=== PATIENT | female | born 1960 | race Caucasian/White ===

== ENCOUNTER 2024-05-28 14:33 | Observation (INO) | payer MEDICARE, SELFPAY ==
[2024-05-28] MEDS ORDERED: Tranexamic Acid 1,000 MG/10 ML VIAL ONE (15:08)
[2024-05-28] MEDS ORDERED: AFRIN NASAL MIST 15 ML BOT ONE (15:36)
[2024-05-28] MEDS ORDERED: EPINEPHrine 1 MG/ML VIAL ONE (15:36)
[2024-05-28] MEDS ORDERED: Lidocaine 1% w/Epinephrine 1:200K 30 ML VIAL ONE (15:37)
[2024-05-28 15:44] LABS: INR-International Normal Ratio 0.9; Prothrombin Time 10.1 sec (9.5-12.1)
[2024-05-28 15:46] LABS: Anion Gap 11 mmol/L (10-20); BUN (Urea Nitrogen) 13 mg/dL (9.8-20.1); Calc. Creatinine Clearance 0 mL/min (70-130); Calcium 9.3 mg/dL (7.8-10.44); Carbon Dioxide 24 mmol/L (23-31); Chloride 106 mmol/L (98-107); Estimated GFR 85; Glucose 245 mg/dL (80-115); Potassium 3.9 mmol/L (3.5-5.1); Sodium 137 mmol/L (136-145)
[2024-05-28 15:52] LABS: #Basophils 0.04 10x3/uL (0.0-0.2); #Eosinophils 0.19 10x3/uL (0.0-0.5); #Monocytes 0.67 10x3/uL (0.0-1.1); #Neutrophils 6.42 10x3/uL (1.5-8.4); %Basophils 0.4 % (0.0-2.0); %Eosinophils 2.1 % (0.0-6.0); %Lymphocytes 19.5 % (18.0-47.0); %Monocytes 7.3 % (0.0-10.0); %Neutrophils 69.5 % (40.0-75.0); Hematocrit 28.9 % (34.9-44.5); Hemoglobin 9.3 g/dL (12.0-15.5); Mean Corpuscular HGB CONC 32.2 g/dL (32.0-36.0); Mean Corpuscular Hemoglobin 29.2 pg (27.0-33.0); Mean Corpuscular Volume 90.9 fL (81.6-98.3); Mean Platelet Volume 9.8 fL (7.4-10.4); Platelet Count 256 10x3/uL (150-450); RBC Distribution Width 14.5 % (11.5-14.5); Red Blood Cell (RBC) Count 3.18 10x6/uL (3.90-5.03); White Blood Cell (WBC) Count 9.2 10x3/uL (3.5-10.5)
[2024-05-28] MEDS ORDERED: Ondansetron ODT 4 MG TAB PO PRN (16:11)
[2024-05-28] MEDS ORDERED: Acetaminophen 325 MG TAB PO PRN (16:11)
[2024-05-28] MEDS ORDERED: Oxymetazoline HCl 0.05% ( 15 ML ) NASAL PRN (16:14)
[2024-05-28 18:28] VITALS: BMI 24.5
[2024-05-28] MEDS: Amoxicillin/Potassium Clav 875 MG TAB PO SCH (20:26)
[2024-05-29] MEDS: predniSONE 20 MG TAB PO SCH (05:46)
[2024-05-29] MEDS ORDERED: EPINEPHrine 1 MG/ML VIAL ONE (06:15)
[2024-05-29] MEDS ORDERED: AFRIN NASAL MIST 15 ML BOT ONE (06:16)
[2024-05-29] MEDS ORDERED: Lidocaine 1% w/Epinephrine 1:200K 30 ML VIAL ONE (06:16)
[2024-05-29] MEDS ORDERED: PROPOFOL 20 ML ONE (06:44)
[2024-05-29] MEDS ORDERED: Lidocaine 1% PF 5 ML VIAL ONE (06:45)
[2024-05-29] MEDS ORDERED: fentaNYL 50 mcg/mL 1 mL Vial ONE (06:45)
[2024-05-29] MEDS ORDERED: Dexamethasone 4 mg/ml Vial ONE (06:45)
[2024-05-29] MEDS ORDERED: Ondansetron PF 4 MG/2 ML Vial ONE (06:45)
[2024-05-29] MEDS ORDERED: Midazolam HCl 2 mg/2 ml Vial ONE (06:45)
[2024-05-29] MEDS ORDERED: Rocuronium Bromide 10 MG/ML (10ML VIAL) ONE (06:45)
[2024-05-29] MEDS ORDERED: Tranexamic Acid 1,000 MG/10 ML VIAL ONE (07:05)
[2024-05-29] MEDS ORDERED: ePHEDrine Sulfate 50 MG/10 ML VIAL ONE (07:08)
[2024-05-29] MEDS ORDERED: SUGAMMADEX SODIUM 200 MG/2 ML VIAL ONE (07:45)
[2024-05-29 08:37] VITALS: BP 146/77; TEMP 98
[2024-05-29] MEDS: Tranexamic Acid 650 MG TAB PO SCH (08:40)
== END 2024-05-29 11:16 | disposition home or self-care (01) ==
LOC: CSHERS 14:33 → CSHTELE 16:11
PROVIDERS: ADMIT Otolaryngology; ATTEND Otolaryngology
DX: R04.0 Epistaxis (principal)
CPT/HCPCS: 31238; 80048; 85025; 85610; 93005; 94760; 94762; 96374; 99285; G0378 ×3; J0171; J1100; J2250; J2405; J2704; J3010; 36415; J7512

== ENCOUNTER 2025-05-14 13:47 | Outpatient (CLI) | payer MEDICARE, MEDICAID | END 2025-05-14 13:48 | disposition home or self-care (01) | LOC: CSHMAMMO 13:47 | PROVIDERS: ATTEND Family Medicine | DX: Z12.31 Encounter for screening mammogram for malignant neoplasm of breast (principal); Z85.828 Personal history of other malignant neoplasm of skin | CPT/HCPCS: 77063; 77067 ==